=== PATIENT | female | born 1940 | race Caucasian/White ===

== ENCOUNTER 2016-11-18 05:22 | Inpatient (IN) | payer OTHER ==
[2016-11-17 11:43] VITALS: BMI 30.1
[~2016-11-18] VITALS: Ht 165.1 cm; Wt 82.2 kg
[2016-11-18] VITALS (26 sets, daily range): BP systolic 122–162; BP diastolic 50–74; PULSE 59–86; RESP 8–23; Ht 165.1 cm; Wt 82.2 kg
[~2016-11-18 05:22] MED LIST: ASPI325T32 PO; BENA10TA48 PO; KNEE PAIN COCKTAIL VANCO INJ SCH; METO50TA16 PO; SYN1 PO
[2016-11-18] MEDS ORDERED: CELECOXIB 200 MG CAP PO ONE (06:00)
[2016-11-18] MEDS ORDERED: KNEE PAIN COCKTAIL VANCO INJ SCH ×6 (06:00)
[2016-11-18] MEDS ORDERED: ONDANSETRON 4 MG INJ IV ONE (06:00)
[2016-11-18] MEDS ORDERED: LACTATED RINGER'S 1,000 ML IV* SCH (06:00)
[2016-11-18] MEDS ORDERED: LANSOPRAZOLE 30 MG CAP PO ONE (06:00)
[2016-11-18] MEDS ORDERED: ACETAMINOPHEN 1000MG/100ML IV 100 ML IVPB ONE (06:00)
[2016-11-18] MEDS ORDERED: oxyCODONE (CR) 10 MG TAB [oxyCONTIN] PO ONE (06:00)
[2016-11-18] MEDS ORDERED: DEXAMETHASONE 4 MG/ML 1 ML INJ IV ONE (06:00)
[2016-11-18] MEDS ORDERED: VANCOMYCIN 1 GM (PMX) 250 ML IVPB ONE (06:00)
[2016-11-18] MEDS: TRANEXAMIC ACID IRR SCH ×4 (06:30→08:46)
[2016-11-18] MEDS ORDERED: TRANEXAMIC ACID IVPB ONE (06:30)
[2016-11-18] MEDS ORDERED: SOD CHLORIDE 0.9% IVPB ONE (06:30)
[2016-11-18] MEDS: SOD CHLORIDE 0.9% IRR SCH ×4 (06:30→08:46)
[2016-11-18] MEDS ORDERED: BUPIVACAINE 0.5%/EPI (SDV) 30 ML INJ ONE (06:43)
[2016-11-18] MEDS ORDERED: METHYLENE BLUE 10 MG/ML VIAL ONE (06:56)
[2016-11-18] MEDS ORDERED: ROPIVACAINE 0.2% 100 ML ONE (06:56)
[2016-11-18] MEDS ORDERED: BUPIVACAINE 0.25%/EPI (SDV) 30 ML INJ ONE (06:56)
[2016-11-18] MEDS ORDERED: TOBRAMYCIN 1.2 GM POWDER ONE (06:57)
[2016-11-18] MEDS ORDERED: POLYMYXIN B 500000 UNIT INJ ONE (06:57)
[2016-11-18] MEDS ORDERED: VANCOMYCIN 1 GM INJ ONE (06:57)
--- NOTE | 2016-11-18 06:57 | HPN ---
Date/Time of Note Date/Time of Note DATE: 11/18/16 TIME: 06:56 Interval H&P Admission Note Pt. seen H&P reviewed: No system changes MAURILIO WRIGHT PA-C Nov 18, 2016 06:57
[2016-11-18] MEDS ORDERED: TERB250T9 PO (07:03)
[2016-11-18] MEDS ORDERED: LOSA25TA5 PO (07:03)
[2016-11-18] MEDS ORDERED: TRAM50TA2 PO (07:03)
[2016-11-18] MEDS ORDERED: BACITRACIN 50000 UNITS INJ ONE (07:15)
[2016-11-18] MEDS ORDERED: LIDOCAINE 2% (SDV) 5 ML INJ ONE (07:23)
[2016-11-18] MEDS ORDERED: PROPOFOL 20 ML ONE (07:23)
[2016-11-18] MEDS ORDERED: METOCLOPRAMIDE 10 MG INJ ONE (07:53)
[2016-11-18] MEDS ORDERED: ONDANSETRON 4 MG INJ ONE (07:53)
[2016-11-18] MEDS ORDERED: EPHEDrine SULFATE 50 MG/5 ML SYG ONE (10:17)
[2016-11-18] MEDS ORDERED: hydrALAzine 20 MG INJ IV PRN (10:30)
[2016-11-18] MEDS ORDERED: METOCLOPRAMIDE 10 MG INJ IV PRN (10:30)
[2016-11-18] MEDS ORDERED: HYDROmorphONE (0.2 MG/ML) 10ML SYG IV PRN ×2 (10:30)
[2016-11-18] MEDS ORDERED: LABETALOL HCL 20MG INJ IV PRN (10:30)
[2016-11-18] MEDS ORDERED: FENTAnyl 50 MCG/ML VIAL IV PRN ×2 (10:30)
[2016-11-18] MEDS ORDERED: DIPHENHYDRAMINE 50 MG INJ IV PRN (10:30)
[2016-11-18] MEDS ORDERED: morphine (1 MG/ML) 10ML SYRINGE IV PRN ×2 (10:30)
[2016-11-18] MEDS ORDERED: MIDAZOLAM 1 MG/ML 2 ML INJ IV PRN (10:30)
[2016-11-18] MEDS ORDERED: ONDANSETRON 4 MG INJ IV PRN (10:30)
[2016-11-18] MEDS ORDERED: MEPERIDINE 25 MG INJ IV PRN (10:30)
[2016-11-18] MEDS ORDERED: EPHEDrine SULFATE 50 MG/5 ML SYG IV PRN (10:30)
--- NOTE | 2016-11-18 11:17 | RADRPT ---
PROCEDURE: Intraoperative fluoroscopic examination, right knee replacement CLINICAL INDICATION: RT KNEE REPLACEMENT TECHNIQUE: Multiple fluoroscopic views of the right knee were obtained intraoperatively COMPARISON: 05/28/2016 FINDINGS: 3 fluoroscopic views are stored demonstrating instrumentation of the right knee, with apparent right patella prosthesis. A total of 17.3 seconds of fluoroscopic time was utilized. IMPRESSION: Fluoroscopic guidance for right knee surgery. RPTAT: DD .Marcelo Foss MD, MD Date Time Electronically viewed and signed by .Marcelo Foss MD, on 11/18/2016 11:17 .T/
--- NOTE | 2016-11-18 11:18 | RADRPT ---
PROCEDURE: XR Knee. CLINICAL INDICATION: RT KNEE REPLACEMENT TECHNIQUE: Single lateral view of the right knee were obtained. The images reviewed on a PACS work station. COMPARISON: None. FINDINGS: Single intraoperative lateral view of the right knee demonstrates right total knee arthroplasty with cemented tibial component. Femoral-tibial alignment appears near anatomic on lateral view. IMPRESSION: Single intraoperative lateral view demonstrating right knee arthroplasty placement. RPTAT: DD .Marcelo Foss MD, MD Date Time Electronically viewed and signed by .Marcelo Foss MD, MD on 11/18/2016 11:18 .T/
[2016-11-18] MEDS ORDERED: COUMADIN NOTE XX SCH (11:30)
[2016-11-18] MEDS ORDERED: NA PHOSPHATE/BIPHOS 133 ML ENEMA PR PRN (11:30)
[2016-11-18] MEDS ORDERED: ZOLPIDEM 5 MG TAB PO PRN (11:30)
[2016-11-18] MEDS ORDERED: DOCUSATE SODIUM 100 MG CAP PO ONE (11:30)
[2016-11-18] MEDS ORDERED: BISACODYL 10 MG SUPP PR PRN (11:30)
[2016-11-18] MEDS ORDERED: NALOXONE (0.4 MG/ML) INJ IV PRN (11:30)
[2016-11-18] MEDS ORDERED: ASPIRIN (EC) 325 MG TAB PO ONE (11:30)
[2016-11-18] MEDS ORDERED: SENNA/DOCUSATE NA (8.6MG/50MG) TAB PO PRN (11:30)
[2016-11-18] MEDS ORDERED: MEPERIDINE 10 MG/ML 30 ML PCA IV PRN (11:30)
[2016-11-18] MEDS ORDERED: MAGNESIUM HYDROXIDE 30ML CUP PO PRN (11:30)
[2016-11-18] MEDS ORDERED: BETHANECHOL 25 MG TAB PO PRN (11:30)
[2016-11-18] MEDS ORDERED: HYDROmorphONE 0.2 MG/ML PCA IV PRN (11:30)
[2016-11-18] MEDS: ACETAMINOPHEN 1000MG/100ML IV 100 ML IVPB SCH ×2 (11:43→20:19)
[2016-11-18] MEDS: ONDANSETRON 4 MG INJ IV SCH ×3 (11:43→23:51)
[2016-11-18] MEDS: CEFAZOLIN 1 GM/50 ML (PMX) 50 ML IVPB SCH ×2 (11:43→19:45)
--- NOTE | 2016-11-18 13:15 | CONS ---
Date/Time of Note Date/Time of Note DATE: 11/18/16 TIME: 13:05 Assessment/Plan Assessment/Plan Problems: (1) Primary osteoarthritis of right knee Status: Resolved Comment: per primary team (2) Hypertension Status: Chronic Comment: Resume metoprolol and losartan, home meds. Qualifiers: Qualified Code: I10 - Essential hypertension (3) Hypothyroidism Status: Chronic Comment: Resume home dose LT4 daily. 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 Pain management and PT schedule per primary team. Will monitor and manage medical issues should they arise. Consultation Date/Type/Reason Admit Date/Time Nov 18, 2016 at 05:22 Date of Consultation: Nov 18, 2016 Type of Consultation: Medicine Reason for Consultation Medical management Referring Provider: KEMAR TORRES MD Hx of Present Illness R knee pain x 6 m. Worse w/ walking. Sometimes when tired can hurt when sitting. Now s/p R TKA POD#0. Pain free. No complaints. Constitutional: improved, no complaints Eyes: no complaints ENT: discharge Respiratory: no complaints Cardiovascular: no complaints Gastrointestinal: no complaints Genitourinary: no complaints Musculoskeletal: no complaints Neurologic: no complaints Psychological: nl mood/affect, no complaints Past Medical History Medical History: hypertension, hypothyroid Past Surgical History Past Surgical Hx: other (B MARCELA, breast biopsy) Family History Significant Family History: heart disease (mother), diabetes (mother), other ( dementia in father) Social History b. 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, , 2 children, 1 Alcohol Use: rarely Smoking Status: Never smoker Drug Use: none Exam/Review of Systems Vital Signs Vitals VS - Last 72 Hours, by Label Date Time Temp Pulse Resp B/P Pulse Ox O2 Delivery O2 Flow Rate FiO2 11/18/16 12:39 68 12 134/58 96 Room Air 11/18/16 12:34 72 11 137/59 98 Room Air 11/18/16 12:29 70 14 130/60 97 Room Air 11/18/16 12:24 72 12 140/56 97 Room Air 11/18/16 12:19 70 9 130/55 97 Room Air 11/18/16 12:14 72 8 135/59 97 Room Air 11/18/16 12:09 72 12 137/50 97 Room Air 11/18/16 12:04 72 11 128/57 95 Room Air 11/18/16 11:58 76 11 139/62 96 Room Air 11/18/16 11:53 78 12 137/60 97 Room Air 11/18/16 11:48 78 23 133/52 96 Room Air 11/18/16 11:43 80 11 130/57 96 Room Air 11/18/16 11:38 82 10 132/60 95 Room Air 11/18/16 11:33 84 18 134/61 95 Room Air 11/18/16 11:28 82 14 132/55 95 Room Air 11/18/16 11:24 98.4 11/18/16 11:23 98.4 86 17 132/55 93 Room Air 11/18/16 06:00 97.1 59 18 162/74 98 Room Air Vital Signs Date Time Temp Pulse Resp B/P Pulse Ox O2 Delivery O2 Flow Rate FiO2 11/18/16 12:39 68 12 134/58 96 Room Air 11/18/16 11:24 98.4 Intake and Output 11/17/16 11/17/16 11/18/16 15:00 23:00 07:00 Intake Total 466.4 ml Balance 466.4 ml Exam Constitutional: alert, obese, oriented Psych: nl mood/affect, no complaints Eyes: EOMI, PERRL, nl conjunctiva, nl lids, nl sclera ENMT: mucosa pink and moist, nl external ears & nose Neck: non-tender, supple, No bruits, No masses, No thyromegaly Respiratory: clear to auscultation, normal air movement Cardiovascular: nl pulses, regular rate and rhythm, No edema, No murmurs/extra sounds, No rub Gastrointestinal: bowel sounds, nl liver, spleen, non-tender, soft, No mass, No rebound or guarding Musculoskeletal: nl extremities to inspection Extremities: normal pulses, No clubbing, No cyanosis, No edema Neurological: VALUER II-XII intact, nl mental status, nl speech, nl strength Medications Medications Current Medications Ropivacaine 60 ml/ Morphine Sulfate 4 mg/Clonidine 100 mcg/Ketorolac Tromethamine 30 mg/Vancomycin HCl 500 mg/Sodium Chloride 50 ml INTRA-OP INJ Last administered on 11/18/16 08:45; Admin Dose 116 ML; Start 11/18/16 at 06:00; Stop 11/18/16 at 23:00 Dextrose/Lactated Ringer's (D5-Lr) 1,000 ml @ 80 mls/hr [id number] IV ; Start 11/18 at 11:11 Hydromorphone HCl (Dilaudid HEEL TOP LIFT SPLITTER) Q4PCA PRN IV SEVERE PAIN 8-10; Start 11/18/16 at 11:30; Stop 11/19/16 at 11:29 Meperidine HCl (Demerol HEEL TOP LIFT SPLITTER) Q4PCA PRN IV SEVERE PAIN 8-10; Start 11/18/16 at 11:30; Stop 11/19/16 at 11:29 Oxycodone HCl (Roxicodone) 20 mg Q3H PRN PO PAIN LEVEL 8-10; Start 11/18/16 at 16:00 Oxycodone HCl (Roxicodone) 10 mg Q3H PRN PO PAIN LEVEL 4-7; Start 11/18/16 at 16 :00 Oxycodone HCl 5 mg 5 mg Q3H PRN PO PAIN LEVEL 1-3; Start 11/18/16 at 16:00 Acetaminophen (Ofirmev 1000mg/ 100ml Iv) 100 ml @ 400 mls/hr Q8H IVPB Last administered on 11/18/16 11:43; Admin Dose 400 MLS/HR; Start 11/18/16 at 11:30; Stop 11/20/16 at 03:44 Zolpidem Tartrate (Ambien) 5 mg HS PRN PO INSOMNIA; Start 11/18/16 at 11:30 Ondansetron HCl 4 mg 4 mg Q6H IV Last administered on 11/18/16 11:43; Admin Dose 4 MG; Start 11/18/16 at 11:30; Stop 11/19/16 at 05:31 Cefazolin Sodium (Ancef 1 Gm/50 ml (Pmx)) 50 ml @ 100 mls/hr Q8H IVPB Last administered on 11/18/16 11:43; Admin Dose 100 MLS/HR; Start 11/18/16 at 11:30; Stop 11/19/16 at 03:59 Miscellaneous Information (Note) NOTE XX ; Start 11/18/16 at 11:30 Aspirin (Ecotrin) 325 mg BID PO ; Start 11/19/16 at 09:00 Celecoxib (Celebrex) 200 mg BID PO ; Start 11/19/16 at 09:00 Dexamethasone (Decadron) 4 mg DAILY@07 IV ; Start 11/19/16 at 07:00; Stop at 06:59 Pantoprazole (Protonix Tab) 40 mg DAILY@06 PO ; Start 11/20/16 at 06:00 Docusate Sodium/ Ferrous Fumarate (Anne-Sequels) 1 tab BID PO ; Start 11/19/16 at 09:00 Docusate Sodium (Colace) 200 mg BID PO ; Start 11/19/16 at 09:00; Stop 11/22/16 at 08:59 Simethicone (Mylicon) 80 mg TID PRN PO DISTENSION/GAS/BLOATING; Start 11/18/16 at 11:30 Senna/Docusate Sodium (Senokot-S) 2 tab BID PRN PO CONSTIPATION; Start 11/18/16 at 11:30 Magnesium Hydroxide (Milk Of Mag) 30 ml HS PRN PO CONSTIPATION; Start 11/18/16 at 11:30 Bisacodyl (Dulcolax Supp) 10 mg DAILY PRN MO CONSTIPATION; Start 11/18/16 at 11: 30 Sodium Biphosphate/ Sodium Phosphate (Fleet Enema) 133 ml DAILY PRN MO CONSTIPATION; Start 11/18/16 at 11:30 Diphenhydramine HCl (Benadryl) 25 mg Q4H PRN IM ITCHING OR RASH; Start 11/18/16 at 16:00 Ketorolac Tromethamine (Toradol) 15 mg DAILY@06 PRN INJ ADMINSTER BY SURGEON ONLY; Start 11/19/16 at 06:00; Stop 11/23/16 at 05:59 Bupivacaine HCl/ Epinephrine Bitart (Marcaine 0.25%/ Epi (Sdv) 30 ml) 20 ml DAILY@06 PRN INJ ADMINSTER BY SURGEON ONLY; Start 11/19/16 at 06:00; Stop at 05:59 Naloxone HCl (Narcan) 0.2 mg Q2M PRN IV DECREASED REPIRATORY RATE; Start at 11:30 REVA GAINES MD Nov 18, 2016 13:15
--- NOTE | 2016-11-18 13:28 | OPR ---
DATE OF OPERATION: 11/18/2016 TOTAL KNEE REPLACEMENT TEMPLATE #1 DATE OF OPERATION: 11/18/2016. SURGEON: Sammy Quinn MD CONSTRUCTION LINEMAN: Kojo FINNEY. ANESTHESIOLOGIST: Dr. Croft. PREOPERATIVE DIAGNOSIS: Exceedingly severe degenerative osteoarthritis of the ____ knee. POSTOPERATIVE DIAGNOSIS: Exceedingly severe degenerative osteoarthritis of the ____ knee. OPERATION PERFORMED: Total knee replacement (arthroplasty of the knee, condylar plateau medial and lateral compartments with patella resurfacing, CPT 45632). FINDINGS AT SURGERY: The patient was found to have exceedingly severe degenerative osteoarthritis o f the medial compartment of the knee and moderate degenerative osteoarthritis of the rest of the kne e. There was a huge osteochondral defect on the medial femoral condyle. Photographs were taken of the joint surface and put in her record. JUSTIFICATION FOR SURGERY: The knee was found to have end-stage osteoarthritis. The patient is a v porfirio active 75-year-old whose lifestyle is markedly affected by the arthritic knee. An extensive cou rse of conservative care has been tried prior to embarking on the knee replacement operation. There can be no reasonable expectation that any further conservative treatment will make any improvement to this patient's pain level and lifestyle. The risks and complications of the surgery were discuss ed with the patient at the preoperative visit as well as the risks and possible complications of blo od transfusion using hospital blood. The patient is agreeable to using hospital blood if needed. DESCRIPTION OF PROCEDURE: The patient was given intravenous antibiotics 1 hour prior to surgery. A n epidural anesthetic was initiated in the ICU holding area. The patient was taken to the operating room and given a light general anesthetic. The leg, foot, and ankle were prepared and draped in th e usual sterile fashion. The center of the ankle was marked at the midpoint between the 2 malleoli with a sterile marking pen. A tourniquet around the thigh was inflated to 250 mmHg after the leg young d been exsanguinated using an Esmarch bandage. The tourniquet was inflated at the initiation of pro cedure for a short period and was then again reinflated at the time of cementing the components part s. The total tourniquet time was 54 minutes. A longitudinal incision was made over the anterior aspect of the knee. The incision extended from t he tibial tubercle to a point just above the patella. The medial capsule was exposed by sharp and b marv dissection, and was incised 1/4 inch medial to the patella. A marking stitch was set on each s gen of the incision at the midpoint of the capsule so as to enable accurate reapproximation at the e nd of the operation. A vastus split was made in the vastus medialis extending from the superior danelle e of the patella for approximately 5 cm between the line with the muscle fibers. The ends of the mu scle split at the patella were marked with a marking stitch on each side for later accurate reapprox imation. The patella was reflected laterally and osteophytes around the rim of the patella were rem audra. Osteophytes along the lateral femoral condyle were removed so as to facilitate lateral reflec tion of the patella. Posteromedial osteophytes were removed on the lateral side as well, so as to f ree up the lateral collateral ligament. Medial femoral osteophytes and posteromedial femoral osteop hytes were also removed at this time. This allowed for the knee to be brought into a more normal al ignment. A segment of bone was cut from the articular surface of the patella using a caliper to det ermine the exact thickness to be removed. The remaining thickness of the patella was 16 mm. The kn ee was flexed, and the patella was displaced laterally without eversion. Osteophytes in the femoral notch were removed. The remnants of the medial and lateral menisci were excised and the cruciate l igaments were excised. The medial collateral ligament was elevated as an osteo-periosteal flap from the proximal tibia. The distal end of the medial collateral ligament remained attached to the tibi a throughout the operation. The tibia was retracted forward with Hohmann retractor, inserted cook mess ior to the midpoint of the proximal tibia. The tibial jig was set in place in such a way as to alig n longitudinally with the anterior tibial spine, with the junction of the middle and medial 2/3 of t he patella tendon, and with the posterior intercondylar eminence of the tibia. An AP and lateral x- ray was obtained with the alignment jig in place. This showed that the alignment was satisfactory a fter some slight adjustments were made. The posterior slope of the tibia was set at 6 degrees. The tibial cutting block was attached to the proximal tibia with 2 Steinmann pins. An external alignme nt janina was placed on the cutting block to confirm the alignment of the cutting block. An Maximino Wing feeler gauge was now placed on the superior aspect of the cutting block to further confirm the post erior slope of the tibia and the depth of the cut to be made. An oscillating saw was used to remove an appropriate amount of bone from the proximal tibia with the healthy side being used to measure t he cutting depth. The lateral femoral condyle of the distal femur was measured to determine the berlin ropriate size for the femoral component. The anterior condyle of the femur was partially removed wi th a rongeur. A medium-sized cutting block was attached to the distal femur with 2 Steinmann pins t hrough the pin holes in the block. The external alignment jig of this cutting block was lined up wi th the anterior surface of the femur and a central intercondylar hole for the intramedullary janina was drilled through the hole in the alignment block. The block was removed. A long [place] nozzle wa s used to flush fat from the intramedullary canal. The appropriately sized cutting block was now at tached to the femur by means of an intramedullary janina. The linking guide was inserted into the slot in the base of the femoral cutting block with the knee set at 90 degrees of flexion and with the li nking guide set flush with the proximal tibial cut in order to set the appropriate rotational alignm ent on the femoral cutting block. Ligament balance was checked at this point and was found to be ve ry satisfactory. Once the rotational alignment had been determined, and the ligaments found to be b alanced, the femoral cutting block was secured to the distal femur with 2 Steinmann pins. The anter ior and posterior cuts of the distal femur were made off the femoral cutting block. The cutting blo ck was removed and a spacer block was used to measure the flexion gap which was found to be 12.5 mm. The same spacer block size without the femoral element was used with the leg in extension to determi ne the amount of distal femur to be removed in the transverse plane. A 5-degree distal cutting bloc k was now set on the femoral intramedullary janina, and the janina was inserted into the intramedullary ca nal. The appropriate amount of bone to be removed was determined. The femoral cutting block was pi nned to the anterior surface of the femur with 2 Steinmann pins. The appropriate amount of bone was resected off the distal femur to give an extension gap equal to the thickness of the flexion gap. The cut needed to be repeated after initial cut in order to produce an extension gap the same size a s the flexion gap. By using the appropriate cutting blocks, the rest of the femoral cuts were made. The femoral trial component was installed and was found to fit perfectly. The femoral trial component was removed. T he proximal tibia was sized, and the appropriate tibial tray selected. The central fixation hole in the tibia was made using the tibial tray template and the appropriate instruments. The femoral and tibial trials and the trial tibial insert were installed, and the patella was prepared to accept th e 32 mm-sized dome component. The trial components were all removed. The tourniquet was inflated. Soft tissues around the knee, especially the posterior capsule, were injected with a mixture of Nilo opin, Toradol, morphine, and clonidine. The cut surfaces of the bones were cleaned with pulsatile W ater Jet lavage and thoroughly dried. Sclerotic bone surfaces were drilled with a 1/8-inch drill. The tibial trial component was installed with methyl methacrylate cement followed by the femoral com ponent and finally the patellar component. Cement was used on all 3 components. The cement was fin annamarie packed into the cut surfaces of the bone and pressurized with a rubber dam in order to get good interdigitation of the cement into the bone. A lateral x-ray of the knee was obtained while the kory ent was hardening with the 12.[address]. The x-ray showed that the knee had full extensio n with a 12.[address] Once the cement was hard, all extraneous cement was removed. The cut edges of the medial capsule were held together at the midpoint with a towel clip, and the knee was put through a full range of motion. The patella was found to track satisfactorily. A lateral r elease was not required. At this point, the patella was found to track very well in the patellar gr oove of the femoral component. The knee was frequently irrigated with normal saline containing antibiotics with pulsatile lavage th roughout the entire operation as a prophylactic measure against infection. Once the cement was hard , the tourniquet was released. Bleeding points were cauterized. The total tourniquet time was 54 m inutes. The patient's vital signs remained stable throughout the operation. The permanent rotating bearing was installed. Superficial and deep Hemovac drains were set in place . The wound was closed using interrupted Vicryl on the capsule with FiberWire used at strategic poi nts such as the attachment of the distal ends of the vastus medialis at the split, and the tibial te ndon was also attached to the osteo-periosteal flap with FiberWire. The rest of the medial capsule was closed with interrupted Vicryl. A subcuticular stitch was inserted and speedy were used on the skin. The usual sterile dressings were applied. A Denny-Cunha compression dressing was applied a fter a sterile cooling pad had been set in place against the deep tissues by sterile cast padding. The patient's condition at the end of the procedure was satisfactory. Vital signs remained stable t hroughout the operation. The patient returned to the recovery room in stable condition. X-rays wer e obtained in the recovery room. Calf pumps were applied to both legs in the operating room. There were no problems or complications as far as we know. The sponge and instrument counts were correct . COMPONENT INFORMATION: KNEE IMPLANT TYPE: . FEMORAL COMPONENT SIZE: 10+ TIBIAL COMPONENT SIZE: #3. PATELLAR COMPONENT SIZE: 32 mm. TIBIAL INSERT: 12.5 mm posterior stabilized mobile. 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 TOTAL TOURNIQUET TIME: 54 minutes. TOTAL BLOOD LOSS: Estimated at 150 mL. Dictated By: SAMMY VILLAGOMEZ/ANU Conf#: [id number] DID#: [id number]
[2016-11-18] MEDS: DEXTROSE 5%-LR 1,000 ML IV SCH ×2 (13:30→23:50)
[2016-11-18 13:56] LABS: ADD UMIC NO; URINE BILIRUBIN (Dip) NEGATIVE (NEGATIVE); URINE BLOOD (Dip) NEGATIVE (NEGATIVE); URINE COLOR LT. YELLOW (YELLOW); URINE GLUCOSE (Dip) NEGATIVE (NEGATIVE); URINE KETONES (Dip) NEGATIVE (NEGATIVE); URINE LEUKOCYTE ESTERASE (Dip) NEGATIVE (NEGATIVE); URINE NITRITE (Dip) NEGATIVE (NEGATIVE); URINE TOTAL PROTEIN (Dip) NEGATIVE (NEGATIVE); URINE UROBILINOGEN (Dip) 0.2 E.U./dL (0.1-1.0)
[2016-11-18] MEDS ORDERED: TRANEXAMIC ACID 820 MG in SOD CHLORIDE 0.9% 100 ML IVPB ONE ×2 (14:00→17:00)
[2016-11-18] MEDS ORDERED: DIPHENHYDRAMINE 50 MG INJ IM PRN (16:00)
[2016-11-18] MEDS ORDERED: oxyCODONE 5 MG TAB PO PRN ×2 (16:00)
--- NOTE | 2016-11-18 17:24 | RADRPT ---
PROCEDURE: XR Knee. CLINICAL INDICATION: Status post right knee replacement TECHNIQUE: AP and lateral view of the right knee were obtained. The images reviewed on a PACS wor kstation. COMPARISON: Intraoperative x-ray November 18, 2016 at 10:18 a.m. FINDINGS: Complete right knee replacement is identified. Prosthetic components are in appropriate position an d alignment. No fractures or destructive lesions are observed. Surgical drains are seen in and over the knee. Soft tissue air is procedural in nature. IMPRESSION: Status post right knee replacement. Prosthetic components are in appropriate position and alignment . RPTAT: AA .Avinash Casas MD, Date Time Electronically viewed and signed by .Avinash Casas MD, on 11/18/2016 17:24 .P/
[2016-11-19] MEDS: CEFAZOLIN 1 GM/50 ML (PMX) 50 ML IVPB SCH (03:44)
[2016-11-19] MEDS: ACETAMINOPHEN 1000MG/100ML IV 100 ML IVPB SCH ×3 (03:44→19:58)
[2016-11-19] MEDS: ONDANSETRON 4 MG INJ IV SCH (04:31)
[2016-11-19 05:42] LABS: ADD SCAN DIFF NO
[2016-11-19 05:53] LABS: BASOPHILS % 0.2 % (0.0-2.0); EOSINOPHILS % 0.4 % (0.0-7.0); HEMATOCRIT 31.8 % (37.0-47.0); HEMOGLOBIN 10.8 g/dl (12.0-16.0); LYMPHOCYTES # 1.9 10^3/ul (0.8-2.9); LYMPHOCYTES % 21.2 % (15.0-51.0); MEAN CORPUSCULAR VOLUME 94.4 fl (82.0-101.0); MEAN PLATELET VOLUME 10.7 fl (7.4-10.4); MONOCYTE # 0.7 10^3/ul (0.3-0.9); MONOCYTES % 7.3 % (0.0-11.0); NEUTROPHIL # 6.5 10^3/ul (1.6-7.5); NEUTROPHILS % 70.5 % (39.0-77.0); PLATELET COUNT 179 10^3/UL (140-415); RED BLOOD COUNT 3.37 10^6/ul (4.20-5.40); RED CELL DISTRIBUTION WIDTH 12.4 % (11.5-14.5); WHITE BLOOD COUNT 9.2 10^3/ul (4.8-10.8)
[2016-11-19] MEDS ORDERED: BUPIVACAINE 0.25%/EPI (SDV) 30 ML INJ INJ PRN (06:00)
[2016-11-19] MEDS ORDERED: KETOROLAC 15 MG INJ INJ PRN (06:00)
[2016-11-19] MEDS: LEVOTHYROXINE 100 MCG TAB PO SCH (06:08)
[2016-11-19] MEDS: DEXAMETHASONE 4 MG/ML 1 ML INJ IV SCH (06:09)
[2016-11-19 06:25] LABS: POTASSIUM 4.3 mmol/L (3.5-5.1)
[2016-11-19 06:25] LABS: ADD UMIC YES; URINE BILIRUBIN (Dip) NEGATIVE (NEGATIVE); URINE BLOOD (Dip) 2+ (NEGATIVE); URINE COLOR LT. YELLOW (YELLOW); URINE KETONES (Dip) NEGATIVE (NEGATIVE); URINE LEUKOCYTE ESTERASE (Dip) NEGATIVE (NEGATIVE); URINE NITRITE (Dip) NEGATIVE (NEGATIVE); URINE TOTAL PROTEIN (Dip) NEGATIVE (NEGATIVE); URINE UROBILINOGEN (Dip) 0.2 E.U./dL (0.1-1.0)
[2016-11-19 06:27] LABS: CREATININE 0.67 mg/dl (0.44-1.00)
[2016-11-19 06:28] LABS: CALCIUM 8.2 mg/dl (8.4-10.2)
[2016-11-19 06:50] LABS: SQUAMOUS EPITHELIAL CELL,UR FEW; URINE RBCS 25-50 /HPF (0)
--- NOTE | 2016-11-19 07:52 | PN ---
Date/Time of Note Date/Time of Note DATE: 11/19/16 TIME: 07:48 Assessment/Plan VTE Prophylaxis VTE Prophylaxis Intervention: ambulation, anti-embolic stocking, SCD's, other ( Aspirin 325 mg twice daily) Lines/Catheters IV Catheter Type (from Nrsg): Saline Lock Lucero in Place (from Nrsg): Yes Assessment/Plan Assessment/Plan -Hemovac Removed Today. 200cc output. -Pain Cocktail Given -Pain Meds as needed -Dress change performed today -OOB with PT -ASA/SCDs for DVT Prophylaxis -Continue monitoring with Internal Medicine -Patient Stable Subjective 24 Hr Interval Summary 75-year-old female postop day 1 status post right total knee replacement. Denies any pain complaints. Patient does get discomfort to the posterior knee when she tries to flex and extend the leg. Patient was up and out of bed with physical therapy yesterday. Able to walk just outside her room and back without any complications. Using front wheeled walker for assisted ambulation. Denies any calf pain, chest pain or shortness of breath. Patient doing well status post surgery. Constitutional: no complaints Pain Control: well controlled Exam/Review of Systems Vital Signs Vitals Vital Signs Date Time Temp Pulse Resp B/P Pulse Ox O2 Delivery O2 Flow Rate FiO2 11/18/16 23:52 97.8 68 18 125/62 97 Room Air Intake and Output 11/18/16 11/18/16 11/19/16 15:00 23:00 07:00 Intake Total 2420 ml 1800 ml Output Total 230 ml 1850 ml Balance 2190 ml -50 ml Exam Free Text/Dictation -Hemovac: Intact -Pain Cocktail Drains: Intact -Incision: Clean, Dry and Intact without any redness or drainage -5/5 Tibialis Anterior, EHL Gastrocnemius/Soleus and Peroneals -Able to actively flex up to 60 with about 15 lag from full extension -Normal Sensation -Palpable DP/PT, Capillary Refill <2 secs -No Distal Edema -Negative Grant Sign/No calf pain -Toes Freely Movable Constitutional: alert, oriented, well developed Results Result Diagram: 11/19/16 0450 11/19/16 045 MAURILIO WRIGHT PA-C Nov 19, 2016 07:52
[2016-11-19 08:07] VITALS: BP 161/70; RESP 18
[2016-11-19] MEDS: TERBINAFINE 250 MG TAB PO SCH (08:44)
[2016-11-19] MEDS: CELECOXIB 200 MG CAP PO SCH ×2 (08:44→20:01)
[2016-11-19] MEDS: ASPIRIN (EC) 325 MG TAB PO SCH ×2 (08:44→20:02)
[2016-11-19] MEDS: FERROUS FUMARATE (SR) TAB PO SCH ×2 (08:45→20:02)
[2016-11-19] MEDS: oxyCODONE 5 MG TAB PO PRN ×2 (08:45→20:02)
[2016-11-19] MEDS: DOCUSATE SODIUM 100 MG CAP PO SCH ×2 (08:45→20:01)
[2016-11-19] MEDS: LOSARTAN 25 MG TAB PO SCH (08:46)
[2016-11-19] MEDS: METOPROLOL (XL) 50 MG TAB PO SCH (08:46)
[2016-11-19 12:08] VITALS: BP 157/69; PULSE 67; RESP 18
[2016-11-19] MEDS: DEXTROSE 5%-LR 1,000 ML IV SCH (13:56)
--- NOTE | 2016-11-19 16:25 | CONS ---
Date/Time of Note Date/Time of Note DATE: 11/19/16 TIME: 16:22 Assessment/Plan Assessment/Plan Problems: (1) Hypertension Status: Chronic Comment: BP mildly elevated. Cont. anti-hypertensive meds. Will monitor. Qualifiers: Hypertension type: essential hypertension Qualified Code: I10 - Essential hypertension (2) Hypothyroidism Status: Chronic Comment: Cont. LT4. 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 Ambulating well w/o pain. Already cleared by PT for d/c home. If continues in this state, will also be ok from med perspective for d/c home tomorrow as well. Consultation Date/Type/Reason Admit Date/Time Nov 18, 2016 at 05:22 Initial Consult Date 11/18/16 Type of Consultation: Medicine Reason for Consultation Medical management Referring Provider: KEMAR TORRES MD 24 HR Interval Summary Constitutional: improved, no complaints Detailed Summary Respiratory: no complaints Cardiovascular: no complaints Gastrointestinal: no complaints Genitourinary: no complaints Musculoskeletal: no complaints Neurologic: no complaints Exam/Review of Systems Vital Signs Vitals VS - Last 72 Hours, by Label Date Time Temp Pulse Resp B/P Pulse Ox O2 Delivery O2 Flow Rate FiO2 11/19/16 12:08 97.9 67 18 157/69 97 Room Air 11/19/16 08:07 98.0 68 18 161/70 98 11/18/16 23:52 97.8 68 18 125/62 97 Room Air 11/18/16 19:43 97.6 65 18 130/65 98 Room Air 11/18/16 16:15 62 16 125/60 98 Room Air 11/18/16 15:15 60 16 122/57 98 Room Air 11/18/16 14:45 63 16 122/57 98 Room Air 11/18/16 14:15 65 16 128/60 98 Room Air 11/18/16 14:00 67 16 132/62 98 Room Air 11/18/16 13:45 65 16 143/59 98 Room Air 11/18/16 13:30 70 16 132/68 98 Room Air 11/18/16 12:39 68 12 134/58 96 Room Air 11/18/16 12:34 72 11 137/59 98 Room Air 11/18/16 12:29 70 14 130/60 97 Room Air 11/18/16 12:24 72 12 140/56 97 Room Air 11/18/16 12:19 70 9 130/55 97 Room Air 11/18/16 12:14 72 8 135/59 97 Room Air 11/18/16 12:09 72 12 137/50 97 Room Air 11/18/16 12:04 72 11 128/57 95 Room Air 11/18/16 11:58 76 11 139/62 96 Room Air 11/18/16 11:53 78 12 137/60 97 Room Air 11/18/16 11:48 78 23 133/52 96 Room Air 11/18/16 11:43 80 11 130/57 96 Room Air 11/18/16 11:38 82 10 132/60 95 Room Air 11/18/16 11:33 84 18 134/61 95 Room Air 11/18/16 11:28 82 14 132/55 95 Room Air 11/18/16 11:24 98.4 11/18/16 11:23 98.4 86 17 132/55 93 Room Air 11/18/16 06:00 97.1 59 18 162/74 98 Room Air Vital Signs Date Time Temp Pulse Resp B/P Pulse Ox O2 Delivery O2 Flow Rate FiO2 11/19/16 12:08 97.9 67 18 157/69 97 Room Air Intake and Output 11/18/16 11/18/16 11/19/16 15:00 23:00 07:00 Intake Total 2420 ml 1800 ml Output Total 230 ml 1850 ml Balance 2190 ml -50 ml Exam Constitutional: alert, obese, oriented Psych: nl mood/affect, no complaints Respiratory: clear to auscultation, normal air movement Cardiovascular: nl pulses, regular rate and rhythm Gastrointestinal: bowel sounds, nl liver, spleen, non-tender, soft, No mass, No rebound or guarding Musculoskeletal: nl extremities to inspection, nl gait and stance Extremities: normal pulses, No clubbing, No cyanosis, No edema 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 YELLOW Urine Glucose 0.25% H Urine Hemoglobin 2+ H Urine Ketones NEGATIVE Urine Leukocyte Esterase NEGATIVE Urine Microscopic RBC 25-50 Urine Microscopic WBC 0-2 Urine Nitrite NEGATIVE Urine Specific [place] 1.020 Urine Squamous Epithelial Cells FEW Urine Total Protein NEGATIVE Urine Urobilinogen 0.2 E.U./dL Urine pH 6.0 Anion Gap 12 Basophils # 0.0 Basophils % 0.2 Blood Urea Nitrogen 10 Calcium Level 8.2 L Carbon Dioxide Level 25 Chloride Level 101 Creatinine 0.67 Eosinophils # 0.0 Eosinophils % 0.4 Glucose Level 123 Hematocrit 31.8 L Hemoglobin 10.8 L Lymphocytes # 1.9 Lymphocytes % 21.2 Mean Corpuscular Hemoglobin 32.0 Mean Corpuscular Hemoglobin Concent 34.0 Mean Corpuscular Volume 94.4 Mean Platelet Volume 10.7 H Monocytes # 0.7 Monocytes % 7.3 Neutrophils # 6.5 Neutrophils % 70.5 Nucleated Red Blood Cells # 0.0 Nucleated Red Blood Cells % 0.0 Platelet Count 179 Potassium Level 4.3 Red Blood Count 3.37 L Red Cell Distribution Width 12.4 Sodium Level 134 L White Blood Count 9.2 Medications Medications Current Medications Dextrose/Lactated Ringer's (D5-Lr) 1,000 ml @ 80 mls/hr [id number] IV Last administered on 11/18/16 23:50; Admin Dose 80 MLS/HR; Start 11/18/16 at 11:11 Oxycodone HCl (Roxicodone) 20 mg Q3H PRN PO PAIN LEVEL 8-10; Start 11/18/16 at 16:00 Oxycodone HCl (Roxicodone) 10 mg Q3H PRN PO PAIN LEVEL 4-7; Start 11/18/16 at 16 :00 Oxycodone HCl 5 mg 5 mg Q3H PRN PO PAIN LEVEL 1-3 Last administered on 08:45; Admin Dose 5 MG; Start 11/18/16 at 16:00 Acetaminophen (Ofirmev 1000mg/ 100ml Iv) 100 ml @ 400 mls/hr Q8H IVPB Last administered on 11/19/16 12:08; Admin Dose 400 MLS/HR; Start 11/18/16 at 11:30; Stop 11/20/16 at 03:44 Zolpidem Tartrate (Ambien) 5 mg HS PRN PO INSOMNIA; Start 11/18/16 at 11:30 Miscellaneous Information (Note) NOTE XX ; Start 11/18/16 at 11:30 Aspirin (Ecotrin) 325 mg BID PO Last administered on 11/19/16 08:44; Admin Dose 325 MG; Start 11/19/16 at 09:00 Celecoxib (Celebrex) 200 mg BID PO Last administered on 11/19/16 08:44; Admin Dose 200 MG; Start 11/19/16 at 09:00 Dexamethasone (Decadron) 4 mg DAILY@07 IV Last administered on 11/19/16 06:09; Admin Dose 4 MG; Start 11/19/16 at 07:00; Stop 11/22/16 at 06:59 Pantoprazole (Protonix Tab) 40 mg DAILY@06 PO ; Start 11/20/16 at 06:00 Docusate Sodium/ Ferrous Fumarate (Anne-Sequels) 1 tab BID PO Last administered on 11/19/16 08:45; Admin Dose 1 TAB; Start 11/19/16 at 09:00 Docusate Sodium (Colace) 200 mg BID PO Last administered on 11/19/16 08:45; Admin Dose 200 MG; Start 11/19/16 at 09:00; Stop 11/22/16 at 08:59 Simethicone (Mylicon) 80 mg TID PRN PO DISTENSION/GAS/BLOATING; Start 11/18/16 at 11:30 Senna/Docusate Sodium (Senokot-S) 2 tab BID PRN PO CONSTIPATION; Start 11/18/16 at 11:30 Magnesium Hydroxide (Milk Of Mag) 30 ml HS PRN PO CONSTIPATION; Start 11/18/16 at 11:30 Bisacodyl (Dulcolax Supp) 10 mg DAILY PRN IN CONSTIPATION; Start 11/18/16 at 11: 30 Sodium Biphosphate/ Sodium Phosphate (Fleet Enema) 133 ml DAILY PRN IN CONSTIPATION; Start 11/18/16 at 11:30 Diphenhydramine HCl (Benadryl) 25 mg Q4H PRN IM ITCHING OR RASH; Start 11/18/16 at 16:00 Ketorolac Tromethamine (Toradol) 15 mg DAILY@06 PRN INJ ADMINSTER BY SURGEON ONLY; Start 11/19/16 at 06:00; Stop 11/23/16 at 05:59 Bupivacaine HCl/ Epinephrine Bitart (Marcaine 0.25%/ Epi (Sdv) 30 ml) 20 ml DAILY@06 PRN INJ ADMINSTER BY SURGEON ONLY; Start 11/19/16 at 06:00; Stop at 05:59 Naloxone HCl (Narcan) 0.2 mg Q2M PRN IV DECREASED REPIRATORY RATE; Start at 11:30 Levothyroxine Sodium (Synthroid) 100 mcg DAILY@06 PO Last administered on 06:08; Admin Dose 100 MCG; Start 11/19/16 at 06:00 Losartan Potassium (Cozaar) 25 mg DAILY PO Last administered on 11/19/16 08:46 ; Admin Dose 25 MG; Start 11/19/16 at 09:00 Metoprolol Succinate (Toprol Xl) 50 mg DAILY PO Last administered on 11/19/16 08:46; Admin Dose 50 MG; Start 11/19/16 at 09:00 Terbinafine HCl (Lamisil) 250 mg DAILY PO Last administered on 11/19/16 08:44; Admin Dose 250 MG; Start 11/19/16 at 09:00 REVA GAINES MD Nov 19, 2016 16:24
[2016-11-19 21:02] VITALS: BP 174/77; RESP 18
[2016-11-19 22:33] VITALS: BP 147/67
[2016-11-20] MEDS: DEXTROSE 5%-LR 1,000 ML IV SCH (00:41)
[2016-11-20] MEDS: ACETAMINOPHEN 1000MG/100ML IV 100 ML IVPB SCH (03:40)
[2016-11-20 05:12] LABS: ADD SCAN DIFF NO
[2016-11-20 05:26] LABS: BASOPHILS % 0.5 % (0.0-2.0); EOSINOPHILS # 0.1 10^3/ul (0.0-0.5); EOSINOPHILS % 1.8 % (0.0-7.0); HEMOGLOBIN 11.1 g/dl (12.0-16.0); LYMPHOCYTES # 2.7 10^3/ul (0.8-2.9); MEAN CORPUSCULAR HEMOGLOBIN 31.8 pg (29.0-33.0); MEAN CORPUSCULAR HGB CONC 33.6 g/dl (32.0-37.0); MEAN CORPUSCULAR VOLUME 94.6 fl (82.0-101.0); MEAN PLATELET VOLUME 10.6 fl (7.4-10.4); MONOCYTE # 0.6 10^3/ul (0.3-0.9); MONOCYTES % 7.8 % (0.0-11.0); NEUTROPHIL # 4.3 10^3/ul (1.6-7.5); NEUTROPHILS % 55.4 % (39.0-77.0); PLATELET COUNT 196 10^3/UL (140-415); RED BLOOD COUNT 3.49 10^6/ul (4.20-5.40); RED CELL DISTRIBUTION WIDTH 12.6 % (11.5-14.5); WHITE BLOOD COUNT 7.8 10^3/ul (4.8-10.8)
[2016-11-20] MEDS ORDERED: PANTOPRAZOLE (EC) 40 MG TAB PO SCH (06:00)
[2016-11-20] MEDS: LEVOTHYROXINE 100 MCG TAB PO SCH (06:11)
[2016-11-20] MEDS: DEXAMETHASONE 4 MG/ML 1 ML INJ IV SCH (06:13)
--- NOTE | 2016-11-20 07:17 | PN ---
Date/Time of Note Date/Time of Note DATE: 11/20/16 TIME: 07:14 Assessment/Plan VTE Prophylaxis VTE Prophylaxis Intervention: ambulation, anti-embolic stocking, SCD's, other ( Aspirin 325 mg twice daily) Lines/Catheters IV Catheter Type (from Nrsg): Saline Lock Lucero in Place (from Nrsg): Yes Assessment/Plan Assessment/Plan -Pain Cocktail Given. Cocktail drains removed -Pain Meds as needed -Dress change performed today -ASA for DVT Prophylaxis x 6 weeks outpatient discussed. -Continue monitoring as outpatient on discharge -Follow-up at scheduled postop outpatient appointment or sooner if there is any issue. -Tegaderm dressings given with specific instructions to use as outpatient to keep wound dry until speedy are moved around 10 days. -Patient Stable -Discharge Home with home health Subjective 24 Hr Interval Summary 75-year-old female postop day 2 status post right total knee replacement. Patient continues to progress. Denies any pain complaints. Now walking throughout the hallways. Denies any calf pain, chest pain or shortness of breath. Would like to go home today. Constitutional: ambulates, no complaints Pain Control: well controlled Exam/Review of Systems Vital Signs Vitals Vital Signs Date Time Temp Pulse Resp B/P Pulse Ox O2 Delivery O2 Flow Rate FiO2 11/19/16 22:33 147/67 11/19/16 21:02 98.0 72 18 97 11/19/16 12:08 Room Air Intake and Output 11/19/16 11/19/16 11/20/16 15:00 23:00 07:00 Intake Total 2300 ml 360 ml Balance 2300 ml 360 ml Exam Free Text/Dictation -Hemovac: Removed -Pain Cocktail Drains: Intact -Incision: Clean, Dry and Intact without any redness or drainage -5/5 Tibialis Anterior, EHL Gastrocnemius/Soleus and Peroneals -5 lag from full extension and patient is able to actively flex up to 90. -Normal Sensation -Palpable DP/PT, Capillary Refill <2 secs -No Distal Edema -Negative Grant Sign/No calf pain -Toes Freely Movable Constitutional: alert, oriented, well developed Results Result Diagram: 11/20/16 0440 11/19/16 0450 MAURILIO WRIGHT PA-C Nov 20, 2016 07:17
--- NOTE | 2016-11-20 07:19 | PDOCDIS ---
Discharge Instructions DIAGNOSIS Discharge Diagnosis: Status post right total knee replacement CONDITION Patient Condition: Stable HOME CARE INSTRUCTIONS: Diet Instructions: Regular ACTIVITY: Activity Restrictions: Slowly Increase Activity Rest between Activity Avoid heavy lifting No Sexual Activity Do not Drive Do not operate Machinery Avoid Heavy Housework Keep Limb Elevated Weight Bearing (As tolerated. May use front wheeled walker if needed.) Bathing Restrictions: Shower (Applied Tegaderm prior to shower. May remove Tegaderm after. Using a Tegaderm each day prior to shower. May stop using Tegaderm once speedy are removed.) FOLLOW UP/APPOINTMENTS Appointments Follow-up on December 09, 2016 at 2:15 PM MAURILIO WRIGHT PA-C Nov 20, 2016 07:18
[2016-11-20 08:06] VITALS: BP 166/74; RESP 18
[2016-11-20] MEDS: DOCUSATE SODIUM 100 MG CAP PO SCH (08:48)
[2016-11-20] MEDS: CELECOXIB 200 MG CAP PO SCH (08:49)
[2016-11-20] MEDS: ASPIRIN (EC) 325 MG TAB PO SCH (08:49)
[2016-11-20] MEDS: TERBINAFINE 250 MG TAB PO SCH (08:49)
[2016-11-20] MEDS: oxyCODONE 5 MG TAB PO PRN (08:49)
[2016-11-20] MEDS: FERROUS FUMARATE (SR) TAB PO SCH (08:49)
[2016-11-20] MEDS: METOPROLOL (XL) 50 MG TAB PO SCH (08:50)
[2016-11-20] MEDS: LOSARTAN 25 MG TAB PO SCH (08:50)
[2016-11-20 11:58] VITALS: BP 159/72; PULSE 60; RESP 20
--- NOTE | 2016-11-20 13:32 | DS ---
Date/Time of Note Date/Time of Note DATE: 11/20/16 TIME: 13:28 Discharge Summary Admission/Discharge Info Admit Date/Time Nov 18, 2016 at 05:22 Discharge Date/Time 11/20/16 Final Diagnosis Status post right total knee replacement Patient Condition: Stable Hospital Course On the day of admission, the patient underwent right total knee replacement Intraoperative complications: None Postoperative complications: None The patient was given prophylactic antibiotics and anticoagulants. On the day of surgery and first postoperative day patient was started on gait training and was taught usual restrictions following knee replacement Suction drain removed on the first postoperative day and the dressings were changed. The wound was found to be clean and healing well. There was no sign of infection. Pain cocktail given. On the second postoperative day, patient continued with inpatient PT. Dressings were changed. Wound was found to be clean and healing well. No signs of infection. Pain cocktail given. On the day of discharge, the wound was clean and healing well; there was no sign of infection. The dressings were changed. Discharge Temperature: 97.8 Discharge White Blood Cell Count: 7.8 Discharge Hemoglobin: 11.1 The patient was discharged home. Arrangements were made for visiting nurses and home health/physical therapy. The patient will be seen in office at scheduled postoperative evaluation date given on their preoperative exam. Should patient complain of any problems prior to scheduled postoperative evaluation date, they may call into outpatient clinic to determine if they need to be scheduled at sooner appointment to be seen immediately if needed. Discharge medications: As per medication reconciliation form Diet: Same as preadmission diet. This is Maurilio Cox PA-C dictating discharge summary for Dr. Sammy Quinn. Home Meds Reported Medications Losartan Potassium* (Losartan Potassium*) 25 Mg Tablet, 25 MG PO DAILY, TAB 11/18/16 Tramadol HCl (Tramadol HCl) 50 Mg Tablet, 50 MG PO Q6 Y for PAIN, #120 TAB 11/18/16 Terbinafine Hcl* (Terbinafine Hcl*) 250 Mg Tablet, 250 MG PO, TAB 11/18/16 Metoprolol Succinate* (Toprol XL*) 50 Mg Tab.er.24h, 50 MG PO DAILY, TAB 06/14/14 Benazepril Hcl* (Benazepril Hcl*) 10 Mg Tablet, 10 MG PO DAILY, TAB 06/14/14 Levothyroxine Sodium* (Synthroid*) 100 Mcg Tablet, 100 MCG PO DAILY 09/17/11 Discontinued Scripts Aspirin* (Aspirin* EC) 325 Mg Tab, 325 MG PO DAILY, #30 TAB Prov:REVA GAINES MD 06/17/14 Follow-up Plan Follow-up on December 09, 2016 at 2:15 PM in office. Pending Labs Laboratory Tests Test 11/20/16 04:40 Basophils # 0.010^3/ul (0.0-0.1) Basophils % 0.5% (0.0-2.0) Eosinophils # 0.110^3/ul (0.0-0.5) Eosinophils % 1.8% (0.0-7.0) Hematocrit 33.0% (37.0-47.0) Hemoglobin 11.1g/dl (12.0-16.0) Lymphocytes # 2.710^3/ul (0.8-2.9) Lymphocytes % 34.0% (15.0-51.0) Mean Corpuscular Hemoglobin 31.8pg (29.0-33.0) Mean Corpuscular Hemoglobin Concent 33.6g/dl (32.0-37.0) Mean Corpuscular Volume 94.6fl (82.0-101.0) Mean Platelet Volume 10.6fl (7.4-10.4) Monocytes # 0.610^3/ul (0.3-0.9) Monocytes % 7.8% (0.0-11.0) Neutrophils # 4.310^3/ul (1.6-7.5) Neutrophils % 55.4% (39.0-77.0) Nucleated Red Blood Cells # 0.010^3/ul (0.0-0.0) Nucleated Red Blood Cells % 0.0/100WBC (0.0-0.0) Platelet Count 60224^3/UL (140-415) Red Blood Count 3.4910^6/ul (4.20-5.40) Red Cell Distribution Width 12.6% (11.5-14.5) White Blood Count 7.810^3/ul (4.8-10.8) MAURILIO WRIGHT PA-C Nov 20, 2016 13:32
== END 2016-11-20 15:30 | disposition home health service (06) | DRG 470 ==
LOC: REC 05:22 → EDSTATUS 07:00 → MS1 12:49
PROC: 0SRC0J9 Replacement of Right Knee Joint with Synthetic Substitute, Cemented, Open Approach (ICD-10-PCS; principal; 2016-11-18 07:30)
DX: M17.11 Unilateral primary osteoarthritis, right knee (principal); I10 Essential (primary) hypertension; E03.9 Hypothyroidism, unspecified
CPT/HCPCS: 73560; 73562; 80048; 81001; 81003; 85025; 86850; 86900; 86901; 86920; 87081; 87086; 97116; 97163; 97530; C1776; J0131; J0690; J0735; J1100; J1885; J2274; J2405; J2765; J2795; J3370; J7120; J7121

== ENCOUNTER → 2016-12-09 | Outpatient (CLI) | payer OTHER ==
[~2016-12-09] MED LIST changes: -ASPI325T32 PO; -KNEE PAIN COCKTAIL VANCO INJ SCH; +LOSA25TA5 PO; +TERB250T9 PO; +TRAM50TA2 PO
--- NOTE | 2016-12-09 14:55 | PN ---
Date/Time of Note Date/Time of Note DATE: 12/09/16 TIME: 14:51 Outpatient Progress Note Chief Complaint 3 weeks status post right total knee replacement HPI 75-year-old female presents today for postop visit status post right total knee arthroplasty on 11/18/2016. In regards to pain, patient states that she experiences only mild pain complaints and usually with activity. Patient is no longer using opiate medication for pain control as she states that naproxen is effective in relieving pain. Patient does have complaints however, of burning pain typically from the medial side of the knee down to the ankle. Pain in regards to burning pain occurs at night when she is lying supine or in either side of the body. She states that when she sleeps in her recliner she has no burning pain sensation. Continues with gabapentin 100 mg twice a day which has been helping with neuropathic pain complaints. Patient has also been using capsaicin cream [id number] to the medial side of the tibia which also helps with burning sensation. Patient does report history of chronic low back pain. Patient is no longer using cane for assisted ambulation. She states that she was able to stop her cane about 1.5 weeks ago. On average, patient walks about 1/2 mile a day. Denies any falls. Patient is very pleased status post surgery and denies any calf pain, chest pain/tightness or difficulty breathing. Denies any complications to the wound. Review of Systems Const: No Fever, no chills, no Fatigue, normal appetite, no diaphoresis. Resp: No SOB, no wheezing, no chest pain. CV: No chest pain, no palpitaions, no CABRERA. Physical Exam Blood pressure is 139/66, pulse is 64, temperature is 98.3, respiratory rate is 12, height is 5 foot 5 inches, weight is 180 pounds. General Appearance: well-developed, well-nourished, in no acute distress. Right knee: Very slight limp with ambulation. Denies any pain with ambulation. No tenderness to palpation to the right knee. Patient is able to actively flex up to 120 with extension showing 5 lag from full extension on exam. Negative Homans sign. Normal sensory examination to light touch. Surgical wound is clean dry and intact and healing well. [place] have been removed. No redness or erythema. No swelling. Allergies Coded Allergies: No Known Allergies (Verified Allergy, Unknown, 3/7/17) Assessment/Plan -Wound healing well after staple removal. No signs of infection. -Continue ASA 325 mg twice daily for DVT prophylaxis until 6 weeks status post surgery. -No signs of DVT. -Patient progressing well. -Physical therapy prescription provided today. -Follow-up at 6 week postop appointment. X-rays will be performed at 6 weeks postoperative appointment. -Patient made aware that they may follow-up sooner, should they experience any issues or complications as we will be glad to see them. -Order for outpatient physical therapy given today with focus on improved range of motion. Medications Home Meds Reported Medications Losartan Potassium* (Losartan Potassium*) 25 Mg Tablet, 25 MG PO DAILY, TAB 11/18/16 Tramadol HCl (Tramadol HCl) 50 Mg Tablet, 50 MG PO Q6 Y for PAIN, #120 TAB 11/18/16 Terbinafine Hcl* (Terbinafine Hcl*) 250 Mg Tablet, 250 MG PO, TAB 11/18/16 Metoprolol Succinate* (Toprol XL*) 50 Mg Tab.er.24h, 50 MG PO DAILY, TAB 06/14/14 Benazepril Hcl* (Benazepril Hcl*) 10 Mg Tablet, 10 MG PO DAILY, TAB 06/14/14 Levothyroxine Sodium* (Synthroid*) 100 Mcg Tablet, 100 MCG PO DAILY 09/17/11 MAURILIO WRIGHT PA-C Dec 09, 2016 14:55
== END | disposition home or self-care (01) ==
LOC: HKI 13:49
DX: Z47.1 Aftercare following joint replacement surgery (principal); M54.5 Low back pain; Z96.651 Presence of right artificial knee joint

== ENCOUNTER → 2016-12-30 | Outpatient (CLI) | payer OTHER ==
--- NOTE | 2016-12-30 15:39 | RADRPT ---
PROCEDURE: Right knee radiographs. CLINICAL INDICATION: Right knee pain. Postop. TECHNIQUE: Three views. Weight bearing. Frontal, lateral, and patellar view. COMPARISON: No prior studies are available for comparison. FINDINGS: There is no fracture or dislocation. There is a joint effusion. The soft tissues are otherwise normal. There is a total right knee arthroplasty which appears satisfactory. There is no lytic or blastic lesion. Anterior skin speedy and surgical drains have been removed. IMPRESSION: 1. Joint effusion. 2. Skin speedy and surgical drains removed. 3. Otherwise satisfactory postoperative appearance of the right knee. RPTAT: QQ .Anthony Joseph MD, MD Date Time Electronically viewed and signed by .Anthony Joseph MD, on 12/30/2016 15:38 .R/
--- NOTE | 2016-12-30 17:09 | PN ---
Date/Time of Note Date/Time of Note DATE: 12/30/16 TIME: 17:05 Outpatient Progress Note Allergies Coded Allergies: No Known Allergies (Verified Allergy, Unknown, 11/18/16) Assessment/Plan Medications Home Meds Reported Medications Losartan Potassium* (Losartan Potassium*) 25 Mg Tablet, 25 MG PO DAILY, TAB 11/18/16 Tramadol HCl (Tramadol HCl) 50 Mg Tablet, 50 MG PO Q6 Y for PAIN, #120 TAB 11/18/16 Terbinafine Hcl* (Terbinafine Hcl*) 250 Mg Tablet, 250 MG PO, TAB 11/18/16 Metoprolol Succinate* (Toprol XL*) 50 Mg Tab.er.24h, 50 MG PO DAILY, TAB 06/14/14 Benazepril Hcl* (Benazepril Hcl*) 10 Mg Tablet, 10 MG PO DAILY, TAB 06/14/14 Levothyroxine Sodium* (Synthroid*) 100 Mcg Tablet, 100 MCG PO DAILY 09/17/11 MAURILIO WRIGHT PA-C Dec 30, 2016 17:09 well aligned, attached and integrated to the bone. No signs of any lucency between metal and bone. Allergies Coded Allergies: No Known Allergies (Verified Allergy, Unknown, 11/18/16) Assessment/Plan -Patient progressing well -Surgical wound continues to heal well. -No signs of infection or DVT on exam. -X-rays showing no abnormalities in regards to prosthesis attachment to bone. -Range of motion is improved status post total knee replacement. -Antibiotic prophylaxis card provided today. -Follow-up 6 months status post surgery. If patient is doing well at that time , possible follow-up on as-needed basis from that point. Dental prophylaxis discussed in detail today. Patient given prophylaxis card with antibiotic options. Should patient have allergy to specific medication ( eg penicillin) alternative options are also provided on the card. Patient is aware that antibiotics should be taken prior to any procedures to prevent increased risk of infection to the joint. Patient is aware that this will be for the rest of their life. Patient states understanding and compliance. Medications Home Meds Reported Medications Losartan Potassium* (Losartan Potassium*) 25 Mg Tablet, 25 MG PO DAILY, TAB 11/18/16 Tramadol HCl (Tramadol HCl) 50 Mg Tablet, 50 MG PO Q6 Y for PAIN, #120 TAB 11/18/16 Terbinafine Hcl* (Terbinafine Hcl*) 250 Mg Tablet, 250 MG PO, TAB 11/18/16 Metoprolol Succinate* (Toprol XL*) 50 Mg Tab.er.24h, 50 MG PO DAILY, TAB 06/14/14 Benazepril Hcl* (Benazepril Hcl*) 10 Mg Tablet, 10 MG PO DAILY, TAB 06/14/14 Levothyroxine Sodium* (Synthroid*) 100 Mcg Tablet, 100 MCG PO DAILY 09/17/11 MAURILIO WRIGHT PA-C Dec 30, 2016 17:09
--- NOTE | 2016-12-30 17:15 | PN ---
Date/Time of Note Date/Time of Note DATE: 12/30/16 TIME: 17:11 Outpatient Progress Note Chief Complaint Follow-up status post arthroscopy to the right knee performed on 12/26/2016. HPI 76-year-old female presents today for follow-up status post right knee arthroscopy with partial medial meniscectomy, abrasion chondroplasty of the medial compartment and partial lateral meniscectomy performed on 12/26/2016. Patient states that since the surgery, she experiences mild occasional pain typically with weightbearing and to the medial compartment. Denies any falls. Patient is walking with assistance using crutches. Overall, patient states that she is doing very well status post surgery and is pleased. Review of Systems Const: No Fever, no chills, no Fatigue, normal appetite, no diaphoresis. Resp: No SOB, no wheezing, no chest pain. CV: No chest pain, no palpitaions, no CABRERA. Physical Exam General Appearance: A [AG] year-old [GD] [who appears well-developed, well- nourished, in no acute distress.] HEENT: [Head normocephalic, atraumatic. Pupils equal, round, reactive to light and accommodate. Sclerae are no jaundice. Nasal turbinates pink without erythema or nasal discharge. Mucous membranes pink and moist without lesions. Oropharynx clear without any exudate or discharge.] NECK: [Supple. Trachea midline, No thyromegaly, No cervical lymphadenopathy, No mass, No carotid bruits, No JVD, Carotid pulses 2+ bilaterally.] PULMONARY: [Clear to auscultaion bilaterally, No retractions, Chest expansion symmetric bilaterally, no rales, no ronchi, no dulness on percussion.] CARDIAC: [Normal SI and S2, Regular rate and rythm, no murmur, gallop, or rub.] GASTROINTESTINAL: [Abdomen is soft, non-tender, Non Rigid, No distention, Positive bowel sounds x4 quadrants, Liver normal.] SKIN: [Warm, dry, no rash, no bruise, no echmosis.] EXTREMITIES: [Bilateral lower extremities normal, no edema, no phlabitus, pulse palpable, no contracture.] MUSCULOSKELETAL: [Spine Normal, Non-tender, Normal range of motion, No swelling , no deformity, no clubbing, or cyanosis, the patient has no edema to bilateral lower extremities, dorsalis pedis pulses palpable bilaterally.] NEUROLOGIC: [The patient is awake, alert, oriented, responding to yes/no questions appropriately, moving all extremities, cranial nerve intact, normal strenght, normal power, normal coordination, normal gait.] Allergies Coded Allergies: No Known Allergies (Verified Allergy, Unknown, 11/18/16) Assessment/Plan -Dressing change performed today. -Review of arthroscopic pictures had with patient today. Patient provided with a copy. -Outpatient physical therapy prescription provided for patient today. Patient advised to initiate physical therapy after sutures have been removed next week. -Follow-up 1 week for suture removal and repeat evaluation. Patient also made aware that she may transition to just 1 crutch for assisted ambulation and gradually transition to independent ambulation when she is comfortable. Dr. Quinn was present for exam today and agrees with plan. Medications Home Meds Reported Medications Losartan Potassium* (Losartan Potassium*) 25 Mg Tablet, 25 MG PO DAILY, TAB 11/18/16 Tramadol HCl (Tramadol HCl) 50 Mg Tablet, 50 MG PO Q6 Y for PAIN, #120 TAB 11/18/16 Terbinafine Hcl* (Terbinafine Hcl*) 250 Mg Tablet, 250 MG PO, TAB 11/18/16 Metoprolol Succinate* (Toprol XL*) 50 Mg Tab.er.24h, 50 MG PO DAILY, TAB 06/14/14 Benazepril Hcl* (Benazepril Hcl*) 10 Mg Tablet, 10 MG PO DAILY, TAB 06/14/14 Levothyroxine Sodium* (Synthroid*) 100 Mcg Tablet, 100 MCG PO DAILY 09/17/11 MAURILIO WRIGHT PA-C Dec 30, 2016 17:14
== END | disposition home or self-care (01) ==
LOC: HKI 13:41
DX: Z48.01 Encounter for change or removal of surgical wound dressing (principal); Z87.39 Personal history of other diseases of the musculoskeletal system and connective tissue

== ENCOUNTER → 2017-06-11 | Outpatient (CLI) | payer OTHER ==
[~2017-06-11] MED LIST changes: +METO-319 PO; -METO50TA16 PO
--- NOTE | 2017-06-11 10:21 | PN ---
Date/Time of Note Date/Time of Note DATE: 06/11/17 TIME: 10:18 Outpatient Progress Note Chief Complaint 6 months status post right total knee replacement HPI 76-year-old female presents today for 6 month postoperative appointment status post right total knee replacement on 11/18/2016. Patient is very pleased status post surgery. She denies any pain complaints. She is back to her normal activities without hesitation. The only complaint that she has at times is she has difficulty with descending stairs as she feels that there is slight weakness. Patient states that she performed at home therapy with ascending and descending stairs and that has improved significantly. Patient states that she feels so much better when compared to how she was prior to surgery. Review of Systems Const: No Fever, no chills, no Fatigue, normal appetite, no diaphoresis. Resp: No SOB, no wheezing, no chest pain. CV: No chest pain, no palpitaions, no CABRERA. Physical Exam Blood pressure is 152/67, temperature is 98.7, pulse is 68, respiratory rate is 12, height is 5 foot 5 inches, weight is 180 pounds General Appearance: well-developed, well-nourished, in no acute distress. Right knee: Patient is able to flex up to 125 with full extension. 5/5 strength on resistance with flexion and extension. Gait is normal and nonantalgic. No tenderness to palpation. Normal sensory examination to light touch. Negative Homans sign. Imaging X-ray of the Right knee performed on 06/11/2017 showing all components appearing well aligned, attached and integrated to the bone. No signs of any lucency between metal and bone. Allergies Coded Allergies: No Known Allergies (Verified Allergy, Unknown, 11/18/16) Assessment/Plan Problems: (1) Status post total right knee replacement * Patient continues to do well. * Patient is discharged from active care and will be monitored on as-needed basis. * Patient made aware that should she spirits any issue she may always call in the future and schedule an appointment as we will be glad to see her. * Follow-up as needed Antibiotic card provided for patient. Patient made aware that dental prophylaxis will be necessary prior to any dental procedure for the remainder of their lifetime. Patient is aware that they must contact their dentist prior to any procedure to inform them of previous joint replacement with prosthesis implant so appropriate antibiotic may be prescribed to lower risk of joint infection status post surgery. Card will also serve as confirmation should patient be traveling and have to go through security such as at an airport. Medications Home Meds Reported Medications Losartan Potassium* (Losartan Potassium*) 25 Mg Tablet, 25 MG PO DAILY, TAB 11/18/16 Tramadol HCl (Tramadol HCl) 50 Mg Tablet, 50 MG PO Q6 Y for PAIN, #120 TAB 11/18/16 Terbinafine Hcl* (Terbinafine Hcl*) 250 Mg Tablet, 250 MG PO, TAB 11/18/16 Metoprolol Succinate* (Toprol XL*) 50 Mg Tab.er.24h, 50 MG PO DAILY, TAB 06/14/14 Benazepril Hcl* (Benazepril Hcl*) 10 Mg Tablet, 10 MG PO DAILY, TAB 06/14/14 Levothyroxine Sodium* (Synthroid*) 100 Mcg Tablet, 100 MCG PO DAILY 09/17/11 MAURILIO WRIGHT PA-C Jun 11, 2017 10:21
--- NOTE | 2017-06-11 16:54 | RADRPT ---
PROCEDURE: Right knee radiographs. CLINICAL INDICATION: Right knee pain. Postop. TECHNIQUE: Three views. Weight bearing. Frontal, lateral, and patellar view. COMPARISON: 12/30/2016. FINDINGS: There is no fracture or dislocation. There is a joint effusion. There is a total right knee constrained arthroplasty which appears satisfactory. There is no lytic or blastic lesion. IMPRESSION: 1. Joint effusion. 2. Right knee arthroplasty. RPTAT: QQ .Anthony Joseph MD, MD Date Time Electronically viewed and signed by .Anthony Joseph MD, MD on 06/11/2017 16:54 .R/
== END | disposition home or self-care (01) ==
LOC: HKI 09:16
DX: Z47.1 Aftercare following joint replacement surgery (principal); Z96.651 Presence of right artificial knee joint
CPT/HCPCS: 73562; G0463